=== PATIENT | female | born 1980 | race Caucasian/White ===

== ENCOUNTER → 2022-05-08 | Outpatient (CLI) | payer OTHER ==
[2022-05-08 08:06] LABS: HEMATOCRIT 37.8 % (37.0-47.0); HEMOGLOBIN 12.5 g/dL (12.5-16.0); MEAN PLATELET VOLUME 9.3 fl (7.4-10.4); RED BLOOD COUNT 4.12 M/mm3 (4.10-5.30); RED CELL DISTRIBUTION WIDTH 12.3 % (11.5-14.5); WHITE BLOOD COUNT 8.5 K/mm3 (4.8-10.8)
[2022-05-08 08:09] LABS: POTASSIUM 4.1 mmol/L (3.5-5.1)
[2022-05-08 08:10] LABS: CALCIUM 9.1 mg/dL (8.3-10.5)
[2022-05-08 08:12] LABS: TOTAL PROTEIN 7.2 g/dL (6.4-8.3)
[2022-05-08 08:13] LABS: TOTAL BILIRUBIN 0.3 mg/dL (0.2-1.2)
== END ==
LOC: LAB 07:44
PROVIDERS: Family Medicine
DX: D25.9 Leiomyoma of uterus, unspecified (principal); Z86.32 Personal history of gestational diabetes

== ENCOUNTER → 2024-04-14 | Outpatient (CLI) | payer BC ==
[2024-04-14 08:08] LABS: BASO # 0.05 K/mm3 (0.02-0.10); EOS # 0.18 K/mm3 (0.04-0.40); EOS % 2.6 % (1.0-5.0); HEMATOCRIT 37.2 % (37.0-47.0); HEMOGLOBIN 11.7 g/dL (12.5-16.0); LYMPH# 2.01 K/mm3 (1.50-4.00); MEAN CELL VOLUME 93 fl (78-100); MEAN CORPUSCULAR HEMOGLOBIN 29 pg (27-31); MEAN CORPUSCULAR HGB CONC 32 g/dL (33-37); MEAN PLATELET VOLUME 9.9 fl (7.4-10.4); MONO # 0.56 K/mm3 (0.20-0.80); NEU # 4.19 K/mm3 (1.40-6.50); PLATELET COUNT 278 K/mm3 (130-400); RED CELL DISTRIBUTION WIDTH 12.9 % (11.5-14.5)
[2024-04-14 08:27] LABS: ALBUMIN 4.1 g/dL (3.5-5.0)
[2024-04-14 08:28] LABS: CALCIUM 9.6 mg/dL (8.3-10.5)
[2024-04-14 08:31] LABS: TOTAL BILIRUBIN 0.2 mg/dL (0.2-1.2)
== END ==
LOC: LAB 07:41
PROVIDERS: Family Medicine
DX: E78.5 Hyperlipidemia, unspecified (principal); I10 Essential (primary) hypertension; E55.9 Vitamin D deficiency, unspecified; R73.9 Hyperglycemia, unspecified